=== PATIENT | male | born 1970 | race Caucasian/White ===

== ENCOUNTER 2017-02-15 10:08 | Inpatient (IN) | payer MEDICARE, MEDICAID ==
[~2017-02-15] VITALS: Ht 139.7 cm; Wt 56.5 kg
[2017-02-18] MEDS ORDERED: TYLENOL DPS325 MG PO (16:39)
[2017-02-18] MEDS ORDERED: ALOE VESTA141 GM TP ×2 (16:40)
[2017-02-18] MEDS ORDERED: TENORMIN-DPS25 MG PO (16:40)
[2017-02-18] MEDS ORDERED: CALTRATE-600 D600 MG PO (16:41)
[2017-02-18] MEDS ORDERED: CHLORTHALIDONE25 MG PO (16:41)
[2017-02-18] MEDS ORDERED: ITCH RELIEF15 GM TP (16:41)
[2017-02-18] MEDS ORDERED: BENADRYL25 MG PO (16:42)
[2017-02-18] MEDS ORDERED: COLACE-DPS100 MG PO ×2 (16:43→16:51)
[2017-02-18] MEDS ORDERED: FEOSOL-DPS325 MG PO (16:43)
[2017-02-18] MEDS ORDERED: DEPAKOTE ER250 MG PO (16:43)
[2017-02-18] MEDS ORDERED: FLONASE 0.05% D16 GM NS (16:44)
[2017-02-18] MEDS ORDERED: IBUPROFEN200 MG PO (16:45)
[2017-02-18] MEDS ORDERED: CLARITIN DPS10 MG PO (16:45)
[2017-02-18] MEDS ORDERED: MAALOX DPS30 ML PO (16:45)
[2017-02-18] MEDS ORDERED: FLUVOXAMINE MA100 MG PO (16:45)
[2017-02-18] MEDS ORDERED: MILK OF MA400 MG/5 M PO (16:46)
[2017-02-18] MEDS ORDERED: ZYPREXA10 MG PO (16:46)
[2017-02-18] MEDS ORDERED: PRILOSEC DPS20 MG PO (16:46)
[2017-02-18] MEDS ORDERED: MIRALAX PACKET17 GM PO (16:47)
[2017-02-18] MEDS ORDERED: PROCTOZONE-HC 230 GM PR (16:47)
[2017-02-18] MEDS ORDERED: Q-TUSSIN100 MG/5 M PO (16:48)
[2017-02-18] MEDS ORDERED: PHENERGAN6.25 MG/5 PO (16:48)
[2017-02-18] MEDS ORDERED: SEROQUEL400 MG PO (16:49)
[2017-02-18] MEDS ORDERED: SENOKOT DPS8.6 MG PO (16:49)
[2017-02-18] MEDS ORDERED: SEROQUEL DPS100 MG PO (16:49)
[2017-02-18] MEDS ORDERED: SUDOGEST30 MG PO (16:50)
[2017-02-18] MEDS ORDERED: SURFAK DPS240 MG PO (16:50)
[2017-02-18] MEDS ORDERED: [UNRECOGNIZED DRUG - OTHER] TP (16:50)
[2017-02-18] MEDS ORDERED: ZOLOFT DPS100 MG PO (16:50)
[2017-02-18] MEDS ORDERED: THERAPEUTIC MUL1 TAB PO (16:51)
[2017-02-18] MEDS ORDERED: NEOSPORIN-DPS15 GM TP (16:51)
[2017-02-18] MEDS ORDERED: KLOR-CON M2020 ME1 PO (16:52)
--- NOTE | 2017-02-18 23:13 | HP ---
ADMIT: 02/15/2017 RM/LOC: 416 [facility] MR#: [id number] [address] [address] ANA MACK [place], [place] [address] History and Physical SEX: M AGE: 46 : 1970 DATE OF SERVICE: CHIEF COMPLAINT: Seizure activity. HISTORY OF PRESENT ILLNESS: This is a 46-year-old gentleman with cerebral palsy, and he was in his alf today and the seizure activity was noted. The patient does not have a diagnosed seizure disorder. When he was in the emergency room, he was awake, alert, could not give history because of his chronic CP. According to the witnesses, the seizure activity lasted 4-5 minutes and was witnessed by his staff. On arrival to the ER, oxygenation was normal at 97%. He was afebrile. Blood pressures were stable, and again he was able to converse, but he does not give any history. This gentleman has chronic cerebral palsy, is typically nonambulatory. He has some behavioral difficulties and psychotic features. He is on multiple medications. There have not been any recent med changes according to staff. He does have history of urinary tract infection in the past. He did have prior G-tube in the past but no longer uses that for feedings. SOCIAL HISTORY: He lives in a alf and has staff with him around the clock. He does not smoke, does not drink alcohol. He likes to drink soda and he reportedly drinks two 12-ounce cans between 8 and 4 p.m., and in the evening, he drinks more, and last night he had 44 ounces of soda. FAMILY HISTORY: Unknown. REVIEW OF SYSTEMS: CONSTITUTIONAL: Review of systems is taken mainly from the staff. There is no reported fever or recent illness. He has been eating well and drinking well at home. He does not drink a lot of water according to them but likes to drink a lot of soda. They have not witnessed any falls. No reported head trauma. He denies having any headache. One staff member said she thought his left eye tends to deviate upward more than she is used to seeing. He does have some scanning nystagmus on a chronic basis according to her. CARDIOPULMONARY: No cough. GASTROINTESTINAL: No vomiting. He has chronic constipation but nothing has changed recently. GENITOURINARY: He is intermittently incontinent. MUSCULOSKELETAL: He has contractures. He is nonambulatory. NEUROPSYCHIATRIC: He has some history of psychotic features with his behavioral and developmental delay due to CP. PHYSICAL EXAMINATION: VITAL SIGNS: Again, initial vital signs were normal in the emergency room. Up on the floor, blood pressure 136/79. He is afebrile, oxygenation of 98% on room air. GENERAL: He is sitting back in bed relaxed, talking with his nurse. He randomly asked multiple questions but cannot give his own history. He has somewhat rapid speech, but it is understandable. He is gripping onto some lotion and ChapStick. He has mild contractures of the hands. ADMIT: 02/15/2017 RM/LOC: 416 [facility] MR#: [id number] [address] [place] [id number] [place] [address] History and Physical SEX: M AGE: 46 : 1970 HEENT: He has right exotropia. He has scanning horizontal nystagmus. As he looks toward his left, his left eye deviates upward but then corrects back down. Pupils difficult to assess but appear equal. HEENT: There is no evidence of trauma around the head or face. LUNGS: Clear. HEART: Regular. ABDOMEN: Belly is soft, denies pain. EXTREMITIES: The legs have trace of pretibial edema. He has muscle wasting in the lower extremities with contractures at the knees and ankles. LABORATORY DATA: Reveals initial sodium was 122 and potassium 2.9, chloride 84, bicarb was 23, BUN 8, creatinine 0.7. Liver enzymes are normal but albumin is a little bit low at 3.1. His corrected calcium is 8.4, valproic acid is 53.8, white count 8.2, hemoglobin 13.3, platelet count is 176. The patient had imaging studies which were his CT without contrast. CT of the head showed no evidence of intracranial hemorrhage, no masses. He had slightly prominent ventricular system which is most likely due to his cerebral palsy, but there is nothing acute noted. ASSESSMENT: 1. Seizure activity with no prior diagnosis of seizure disorder. 2. Cerebral palsy with moderate effect, moderate mental retardation. 3. Hyponatremia. 4. Hypokalemia. 5. Behavioral disorder. PLAN: Replace potassium IV and gradually hydrate with normal saline. If he has further seizures, I will consider hypertonic saline. At this point, it is difficult to say for certain what the cause of the seizure activity was from. We will keep him inpatient and consider EEG study once electrolytes are all normalized. That could also be done as an outpatient. I will also check urinalysis since he has had a history of urinary tract infection. However, he has no fevers. Blood pressures are stable and there is no evidence of sepsis. Aniyah Galvan MD/ yossi JOB #: [id number] CC: Tito Harris, Attending Physician Tito Harris, Family Physician
--- NOTE | 2017-02-21 10:41 | EEG ---
ADMIT: 02/15/2017 RM/LOC: 416 [facility] MR#: [id number] [address] [address] [place] [address] Inpatient EEG SEX: M AGE: 46 : 1970 DATE: 02/16/2017 EEG NUMBER: [id number]. HISTORY OF PRESENT ILLNESS: The patient is a 46-year-old gentleman with history of seizure. This is a routine 21 channel digital EEG recording performed on a semi- cooperative patient who was awake and drowsy in various portions of the study. The study is performed using the 10/20 international electrode placement system. During wakefulness, the background activity is fairly organized consisting of regular and symmetrical low amplitude activity up to 7 Hz, which is seen posteriorly. It Attenuates with eye opening. In addition, some fast activities seen anteriorly. During periods of drowsiness, there is generalized attenuation of posterior dominant rhythm with appearance of slower frequencies seen bilaterally. There were no focal slowing's nor epileptiform discharges seen in this recording. Hyperventilation was not performed secondary to clinical condition. Photic stimulation was performed at 1-33 Hz frequency, failed to elicit bilateral occipital driving response. Great portion of the study is degraded by muscle motion artifacts and electrode pops. IMPRESSION: This is an abnormal awake and drowsy EEG recording secondary to slowing of the posterior background rhythm which is suggestive of some mild encephalopathy. Note normal EEG does not rule out the existence of a seizure disorder. Clinical correlation is suggested. COMMENT: Normal cardiac rhythm is noted throughout this recording. Juventino Muir MD/ colleenl JOB #: [id number] CC: Tito Harris MD, Attending Physician Tito Harris MD, Family Physician
--- NOTE | 2017-02-22 09:07 | DS ---
ADMIT: 02/15/2017 RM/LOC: 416 [facility] MR#: [id number] [address] [address] [place] [address] Discharge Summary SEX: M AGE: 46 : 1970 ADMISSION DATE: 02/15/2017 DISCHARGE DATE: 02/17/2017 FINAL DIAGNOSES: 1. Seizure-like episode. 2. Severe hyponatremia. 3. Hypokalemia. 4. Cerebral palsy. 5. Intellectual disability. 6. Bipolar disorder. 7. Acute encephalopathy, metabolic, due to hyponatremia. REASON FOR ADMISSION: The patient is a 46-year-old, white male, with history of cerebral palsy and intellectual disability who lives in a [facility]. Had some witnessed seizure-like activity for 4-5 minutes so was brought into the emergency room as he has no history of seizures. Was evaluated there and had a sodium of 122 noted. Was admitted for further treatment of his hyponatremia and monitoring for his seizure. Also had a low potassium level at 2.9. HOSPITAL COURSE: The patient was admitted and started on normal saline. His sodium did come up over the 1st several hours, and he had no further seizure activity in the hospital. Underwent an EEG on 02/16 that just showed some mild diffuse slowing consistent with encephalopathy but no abnormal spikes were noted. His fluids were adjusted and an EKG and cardiac enzymes were also done, which looked normal. We did check several BMPs and once the sodium returned to normal it stayed normal, and his potassium was up to 3.7 by day of discharge as well. He was feeling good, and his caregiver, who had been with him said he was acting normal. Had been eating and drinking okay. No other complicating diagnoses were noted during his stay. DISCHARGE INSTRUCTIONS: The patient will be discharged back to his [facility] today. We will resume his regular medications but we will have them limit his soda intake to 12 ounces a day as it sounds like he gets quite a bit of that. We will have them liberalize the salt in his diet, and we will just have to watch his BMP more closely and monitor these issues. Can add a potassium supplement as well 20 mEq daily, and we will recheck a BMP in a week and then just plan to monitor his BMP every month as he is on several psychiatric medications that put him at risk for hyponatremia. Is having difficulty keeping it up, may need to make some adjustments in the dose. We will also make an outpatient Neurology appointment for him for followup of the seizure disorder. Claudia Yarbrough MD/ aguilar JOB #: [id number] CC: Tito Harris MD, Attending Physician ADMIT: 02/15/2017 RM/LOC: 416 [facility] MR#: [id number] [address] [place], [place] [id number] [place] [address] Discharge Summary SEX: M AGE: 46 : 1970 Tito Harris MD, Family Physician
--- NOTE | 2017-02-28 16:04 | ER ---
ADMIT: 02/15/2017 RM/LOC: 416 [facility] MR#: [id number] [address] [address] [place] [address] Emergency Room Report SEX: M AGE: 46 : 1970 DATE: 02/15/2017 ADDENDUM: 46-year-old white male coming in with confusion. He has hyponatremia, hyperkalemia, MR. At this time, Depakote level was 53. CT of the head shows chronic changes. I spoke to Dr. Galvan. She will admit for observation. CONDITION ON DISCHARGE: Serious but stable. Kin Taylor MD/ modl JOB #: [id number] CC: Tito Harris MD, Attending Physician Tito Harris MD, Family Physician
== END 2017-02-17 11:00 | DRG 640 ==
LOC: ER 10:08 → 4PCU 13:22
PROVIDERS: ADMIT Family Medicine
PROC: 4A10X4Z Monitoring of Central Nervous Electrical Activity, External Approach (ICD-10-PCS; principal; 2017-02-16)
DX: E87.1 Hypo-osmolality and hyponatremia (principal); G93.41 Metabolic encephalopathy; R56.9 Unspecified convulsions; G80.9 Cerebral palsy, unspecified; K59.09 Other constipation; H55.09 Other forms of nystagmus; F71 Moderate intellectual disabilities; E87.6 Hypokalemia; F31.9 Bipolar disorder, unspecified